=== PATIENT | male | born 1990 | race Caucasian/White ===

== ENCOUNTER 2018-02-26 17:40 | Emergency (ER) | payer OTHER ==
[2018-02-26 17:45] VITALS: BP 155/102; PULSE 94; TEMP 98.4; BMI 39.7
--- NOTE | 2018-02-26 18:00 | PDOC ---
History of Present Illness - General Chief Complaint: Rash Stated Complaint: BURN Time Seen by Provider: 02/26/18 17:46 History Source: Patient Exam Limitations: No Limitations - History of Present Illness Initial Comments: CHIEF COMPLAINT: 28 y/o afebrile male with no significant PMH c/o itchy sunburn to his body. HISTORY OF PRESENT ILLNESS: The patient states he went to the beach yesterday and used tanning oil, which he's used before. He woke up today with itchy johnson all over his face, chest and arms. He did go in the ocean as well. He denies f /c, n/v/d, JO, neck pain, cough, lip/tongue swelling, difficulty breathing, CP, SOB and all other symptoms. 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) - Immunization History Immunization Up to Date: Yes - Suicide/Smoking/Psychosocial Hx Smoking Status: Yes Smoking History: Never smoked Years of Tobacco Use: 5 Number of Cigarettes Smoked Daily: 0 Information on smoking cessation initiated: No Drug/Substance Use Hx: Yes Substance Use Type: Alcohol, Marijuana Review of Systems - Review of Systems Able to Perform ROS?: Yes Constitutional: No: Chills, Fever HEENTM: No: Ear Pain, Nose Congestion, Throat Pain, Throat Swelling, Difficulty Swallowing, Mouth Swelling Respiratory: No: Cough, Shortness of Breath, Wheezing Cardiac (ROS): No: Chest Pain ABD/GI: No: Diarrhea, Nausea, Vomiting Integumentary: Yes: Pruritus, Rash Neurological: No: Headache, Numbness, Paresthesia *Physical Exam - Vital Signs Last Vital Signs Temp Pulse Resp BP Pulse Ox 98.4 F 94 H 18 155/102 99 02/26/18 17:42 02/26/18 17:42 02/26/18 17:42 02/26/18 17:42 02/26/18 17:42 - Physical Exam Comments: Patient is a well appearing, ambulatory male in NAD or obvious discomfort. General Appearance: Yes: Nourished, Appropriately Dressed. No: Apparent Distress HEENT: positive: EOMI, RAMSEY, Normal Voice, Other (no angioedema) Neck: positive: Lymphadenopathy (L). negative: Tender, Lymphadenopathy (R) Cardiovascular: positive: Regular Rhythm, Regular Rate Lymphatic: positive: Adenopathy (left cervical, non tender) Integumentary: positive: Other (scattered lesions that appear to be flat scabs on both side of face, 2 on right anterior chest and 1 on right arm. No streaking or surrouding erythema. Not TTP.) Neurologic: positive: manager cosmetics II-XII NML intact, Fully Oriented, Alert, Motor Strength 5/5 Medical Decision Making - Medical Decision Making A/P: 28 y/o male with scab like lesions on skin after applying tanning lotion and going swimming in the ocean yesterday. Does not look like sunburn. Looks more like a topical dermatitis/reaction to something in the ocean or the tanning lotion. Suggested he use benadryl cream to help with itching and f/u with Dr. Ferrera if no improvement within 3-4 days. Pt instructed to return to the ER with any worsening or concerning symptoms. Patient verbalizes understanding of all instructions, has no further questions and is awaiting discharge. *DC/Admit/Observation/Transfer Diagnosis at time of Disposition: Allergic reaction Qualifiers: Encounter type: initial encounter Qualified Code(s): T78.40XA - Allergy, unspecified, initial encounter - Discharge Dispostion Disposition: HOME Condition at time of disposition: Good - Referrals Referrals: Christina Ferrera MD [Staff Physician] - 3 days - Patient Instructions Printed Discharge Instructions: DI for General Allergic Reactions Additional Instructions: Discharge Instructions: -You have what appears to be an allergic reaction -You can apply over the counter benadryl cream to the areas if they are itchy -Try not to scratch affected areas -Do not scratch affected areas. -Follow up with Dr. Ferrera in 3 days if no improvement in symptoms -Return to the ER with any worsening or concerning symptoms - Post Discharge Activity Forms/Work/School Notes: Back to Work
== END 2018-02-26 18:01 | disposition home or self-care (01) ==
LOC: JERFT 17:40
DX: T78.40XA Allergy, unspecified, initial encounter (principal)
CPT/HCPCS: 99281-25